=== PATIENT | female | born 1950 | race Caucasian/White ===

== ENCOUNTER → 2018-12-31 | Outpatient (CLI) | payer MEDICARE ==
--- NOTE | 2018-12-31 14:52 | Diagnostic Imaging Report ---
EXAM: Fine-needle aspiration of a right thyroid nodule. HISTORY: Patient with a predominantly cystic right thyroid lobe nodule with a mural nodule adjacent to the wall. COMPARISON: [facility] ultrasound dated 10/26/2018 revealed a 1 cm predominantly cystic nodule in the inferior aspect of the right lobe with a 4 mm mural component. Second lower pole nodule measuring 4.6 mm does not meet criteria for biopsy. PROCEDURE: Following informed consent and sterile preparation of the right neck was accomplished with full barrier sterile technique. Local anesthesia obtained with 1% Xylocaine. A total of 4 FNA's utilizing 26-gauge needles were performed and stored to the medical record. Specific targeting to the mural nodule was accomplished. Following pass # 2 the cystic portion of the nodule appears more inhomogeneous likely secondary to hemorrhage within the nodule. Specimens were evaluated by the pathologist who was in attendance. She deems the specimens adequate. Patient tolerated the procedure well. IMPRESSION: Successful fine needle aspiration of a right thyroid nodule. Signed by: Dr. Allan Hoffman DO on 12/31/2018 2:49 PM
== END ==
LOC: US 10:59
PROVIDERS: ATTEND Otolaryngology
DX: E04.2 Nontoxic multinodular goiter (principal)
CPT/HCPCS: 10005; 88112; 88172; 88305